=== PATIENT | male | born 1960 | race Caucasian/White ===

== ENCOUNTER 2020-10-29 15:41 | Outpatient (CLI) | payer BC ==
--- NOTE | 2020-10-29 15:57 | RAD ---
EXAM: Chest 2 views: HISTORY: Covid pneumonia for 2 weeks COMPARISON: None. FINDINGS: There is a normal-sized cardiomediastinal silhouette. Increased interstitial opacity is seen in the l eft lung base which could represent scarring. A persistent superimposed infiltrate cannot be excluded. No acute osseous abnormality. IMPRESSION: Left lower lobe scarring and/or infiltrate
== END 2020-10-29 15:42 | disposition home or self-care (01) ==
LOC: BICRAD 15:41
PROVIDERS: ATTEND Family Medicine
DX: U07.1 COVID-19 (principal); J12.82 Pneumonia due to coronavirus disease 2019; J98.4 Other disorders of lung
CPT/HCPCS: 71046

== ENCOUNTER 2020-11-22 14:14 | Outpatient (CLI) | payer BC | END 2020-11-22 14:15 | disposition home or self-care (01) | LOC: BICRAD 14:14 | PROVIDERS: ATTEND Family Medicine | DX: R10.9 Unspecified abdominal pain (principal) | CPT/HCPCS: 74018 ==

== ENCOUNTER 2021-01-22 14:18 | Outpatient (CLI) | payer BC ==
[2021-01-22] MEDS ORDERED: Magnevist 469MG/ML 20 ML VIAL ONE (15:15)
== END 2021-01-22 14:19 | disposition home or self-care (01) ==
LOC: TBSIIMAG 14:18
PROVIDERS: ATTEND Internal Medicine Hematology & Oncology
DX: C61 Malignant neoplasm of prostate (principal); R79.89 Other specified abnormal findings of blood chemistry
CPT/HCPCS: 72197; A9579

== ENCOUNTER 2021-04-09 12:24 | Outpatient (CLI) | payer BC | END 2021-04-09 12:25 | disposition home or self-care (01) | LOC: BICRAD 12:24 | PROVIDERS: ATTEND Internal Medicine Pulmonary Disease | DX: R06.00 Dyspnea, unspecified (principal) | CPT/HCPCS: 71046 ==

== ENCOUNTER 2021-08-26 08:28 | Outpatient (CLI) | payer BC | END 2021-08-26 08:29 | disposition home or self-care (01) | LOC: BICULT 08:28 | PROVIDERS: ATTEND Family Medicine | DX: R10.9 Unspecified abdominal pain (principal); K76.0 Fatty (change of) liver, not elsewhere classified; N28.1 Cyst of kidney, acquired | CPT/HCPCS: 76700 ==

== ENCOUNTER 2022-02-18 16:08 | Outpatient (CLI) | payer BC | END 2022-02-18 16:09 | disposition home or self-care (01) | LOC: BICRAD 16:08 | PROVIDERS: ATTEND Family Medicine | DX: J90 Pleural effusion, not elsewhere classified (principal) | CPT/HCPCS: 71046 ==

== ENCOUNTER 2023-04-28 10:24 | Outpatient (CLI) | payer OTHER | END 2023-04-28 10:25 | disposition home or self-care (01) | LOC: ULT 10:24 | PROVIDERS: ATTEND Internal Medicine Cardiovascular Disease | DX: I80.8 Phlebitis and thrombophlebitis of other sites (principal) ==